=== PATIENT | male | born 1955 | race Caucasian/White ===

== ENCOUNTER → 2017-12-21 | Outpatient (CLI) | payer OTHER ==
[~2017-12-21] MED LIST: ALBU1AER9; ALL60 PO; FLVHFA110 INH; MEDLIST; MOME50SP5; OMEG10007 PO; SIMV20TA2 PO; [UNRECOGNIZED DRUG - CODE]
--- NOTE | 2017-12-21 09:08 | DIAGNOSTIC IMAGING REPORT ---
L RIBS UNILATERAL WITH PA CHEST (6 views] ) CLINICAL HISTORY: LEFT SIDE RIB PAIN COMPARISON STUDY: No previous studies for comparison. FINDINGS: The erect chest reveals no pneumothorax. There is no focal pulmonary consolidation. No left-sided rib fractures are visualized. No destructive lesions are delineated. IMPRESSION: 1. No evidence of pneumothorax. 2. No left-sided rib fractures identified. Electronically signed by: Darin Bean M.D. 12/21/2017 9:06 AM Dictated Date/Time: 12/21/2017 9:05 AM
== END | disposition home or self-care (01) ==
LOC: C.RAD1850 08:39
PROVIDERS: ATTEND Family Medicine
DX: R07.81 Pleurodynia (principal)

== ENCOUNTER 2025-01-29 17:42 | Inpatient (IN) ==
[2025-01-29 18:53] LABS: Basophils # (auto) 0.07 K/uL (0.00-0.20); Basophils % (auto) 0.7 %; Eosinophils # (auto) 0.38 K/uL (0.00-0.50); Eosinophils % (auto) 3.8 %; Hematocrit (blood only) 37.7 % (42.0-52.0); Hemoglobin 12.3 g/dl (14.0-18.0); Immature Granulocytes # (auto) 0.21 K/uL (0.01-0.20); Immature Granulocytes % (auto) 2.1 %; Lymphocytes # (auto) 1.47 K/uL (1.20-3.40); Lymphocytes % (auto) 14.9 %; Mean Corpuscular Hemoglobin 28.6 pg (25.0-34.0); Mean Corpuscular Hgb Conc 32.6 g/dL (32.0-36.0); Mean Corpuscular Volume 87.7 fL (80.0-100.0); Mean Platelet Volume 8.6 fL (9.4-12.4); Monocytes # (auto) 0.52 K/uL (0.11-0.59); Monocytes % (auto) 5.3 %; Neutrophils # (auto) 7.24 K/uL (1.40-6.50); Neutrophils % (auto) 73.2 %; Platelet Count 311 K/uL (130-400); RDW Coefficient of Variation 12.1 % (11.5-14.5); RDW Standard Deviation 39.1 fL (36.4-46.3); White Blood Count 9.89 K/ul (4.8-10.8)
--- NOTE | 2025-01-29 18:55 | XRay Report ---
INDICATION: Chest pain. TECHNIQUE: Frontal radiograph of the chest. COMPARISON: Radiograph from 07/24/2023. FINDINGS: Low inspiratory depth. Mild cardiomegaly. Pulmonary vasculature appear within normal limits. No infiltrate, pleural effusion or pneumothorax. No acute osseous abnormality evident. IMPRESSION: No acute cardiopulmonary process. Electronically signed by Lenny Swift 01-29-2025 6:55 PM
[2025-01-29] MEDS: OPTIRAY 320 125ml IV ONE (19:08)
[2025-01-29 19:15] LABS: Anion Gap 7 (3-11); BUN Creatinine Ratio 16.8 (10-20); Blood Urea Nitrogen 16 mg/dl (6-23); Calcium 9.3 mg/dl (8.6-10.3); Carbon Dioxide 29 mmol/L (21-32); Chloride 101 mmol/L (98-107); Glucose 146 mg/dl (70-99(Fasting)); Lipase 17 U/L (11-82); Sodium 137 mmol/L (136-145)
[2025-01-29 19:22] LABS: Troponin I High Sensitivity 5.2 pg/ml (0-20)
[2025-01-29 19:27] LABS: Partial Thromboplastin Time 28 Seconds (21-31); Prothrombin Time 11.2 Seconds (9.0-12.0)
[2025-01-29 19:29] LABS: D Dimer 20960 ug/L FEU (0-500)
--- NOTE | 2025-01-29 20:19 | CT Scan Report ---
CT PULMONARY ANGIOGRAM. HISTORY: Chest pain TECHNIQUE: Enhanced CT examination of the chest was performed using pulmonary embolism protocol. IV CONTRAST: 100 mL of OMNIPAQUE 300 COMPARISON: None FINDINGS: PULMONARY ARTERIES: There are pulmonary emboli in the right lower lobe segmental and subsegmental branches. LYMPH NODES: No lymphadenopathy by size criteria. CARDIOVASCULAR: Mildly enlarged cardiac size without right heart strain.. No pericardial effusion. No aortic aneurysm. There are coronary artery calcifications in keeping with coronary artery disease. MEDIASTINUM: No solid or cystic mediastinal masses. The esophagus is normally decompressed. LUNGS/PLEURA: The central tracheo-bronchial tree is patent. No mass is identified. Bibasilar atelectasis. No pleural effusion or pneumothorax. No suspicious pulmonary nodules. BONES: No suspicious osseous lesions. VISUALIZED LOWER NECK: Unremarkable. VISUALIZED UPPER ABDOMEN: Unremarkable IMPRESSION: Pulmonary emboli in the right lower lobe segmental and subsegmental branches. Mild cardiomegaly without right heart strain. Notification to clinician of alert: [facility] was notified about above findings by phone on January 29, 2025 at 8:18 PM by Wilfrido Shaw MD. Readback confirmation was obtained. Electronically signed by Wilfrido Shaw 01-29-2025 8:19 PM
[2025-01-29] MEDS: HEPARIN SOD (PORCINE) 1000 UNIT/ML IV ONE (21:18)
[2025-01-29] MEDS: HEPARIN 25000 UNIT/500 ML D5W 25,000 UNITS/500 ML BAG IV SCH (21:18)
[2025-01-29] MEDS: Heparin IV Adult Wt-Based Standard w/ INITIAL Bolus Protocol IV STA (21:21)
--- NOTE | 2025-01-29 22:07 | History & Physical Report ---
Date of Service January 29, 2025 Assessment & Plan (1) Pulmonary emboli: (2) Hypercholesterolemia: (3) BPH loc w urin obs/LUTS: (4) Asthma: (5) DVT (deep venous thrombosis): Plan 69 year old male with PMHx of HLD, BPH, asthma, and recent right ankle fracture presenting after stat venous duplex US revealed extensive RLE DVT: #DVT // #PE: -RLE venous duplex US: right external iliac, common femoral, profunda femoral vein, superficial femoral, popliteal, and visualized calf veins all appear thrombosed -CTA Chest: Pulmonary emboli in the right lower lobe segmental and subsegmental branches -PESI score falls into class III, intermediate risk -Lower suspicion for clinically significant right heart strain based on clinical appearance and fairly reassuring vitals - will check trop/BNP/lactate and evaluate further with TTE -Patient started on Heparin drip, will continue for time being. Based on history, appears to be a provoked event in the setting of immobility - anticipate discharge on DOAC for minimum 6 month duration of treatment. -Incentive spirometry Q4WA #HLD: continue simvastatin #BPH: continue alfuzosin (sub per formulary) #Asthma: continue Flovent, PRN albuterol Dispo: Admit PCU VTE ppx: Heparin FEN/GI: HH diet Full Code History of Present Illness Primary Care Provider: Anibal Oneil, 69 year old male with PMHx of HLD, BPH, asthma, and recent right ankle fracture presenting after stat venous duplex US revealed extensive RLE DVT. Patient reports diffuse RLE swelling up to the thigh that started after he fractured his right ankle 01/03. Denies associated erythema but notes ongoing tenderness of right lateral thigh. Patient has been non-weight bearing on right foot since injury. Reports BELL when using crutches, no shortness of breath at rest. Denies chest pain. Denies h/o previous DVT or PE. Denies current or previous cancer history. +FHx of colon cancer in father. Last colonoscopy 2022, f/u colo recommended 2025. Denies change in bowel habits, blood in stool, unintentional weight loss. Non-smoker. ED Course: CTA Chest: Pulmonary emboli in the right lower lobe segmental and subsegmental branches Started on Heparin drip Allergies Allergy/AdvReac Type Severity Reaction Status Date / Time Cipro Allergy Intermediate TENDINITIS Unverified 01/01/10 02:31 ciprofloxacin Allergy Intermediate TENDINITIS Verified 01/29/25 19:36 Sulfa (Sulfonamide Allergy Unknown ANAPHYLAXIS Verified 01/29/25 19:36 Antibiotics) aspirin Allergy . Verified 01/29/25 19:36 celecoxib Allergy . Verified 01/29/25 19:36 NSAIDS (Non-Steroidal Allergy Unknown Verified 01/29/25 23:34 Anti-Inflamma Quinolones Allergy TENDINITIS Verified 01/29/25 19:36 doxycycline AdvReac Severe Back Pain Unverified 01/29/25 19:36 prednisone AdvReac Unknown UNKNOWN Verified 01/29/25 19:36 loratadine AdvReac HALLUSTINAT Verified 01/29/25 19:36 IONS Home Medications Medication Instructions Recorded Confirmed Type albuterol sulfate 90 mcg/actuation 2 puff inhalation Q4H PRN 01/29/25 01/29/25 History aerosol inhaler Shortness Of Breath alfuzosin 10 mg tablet,extended 10 mg PO DAILY 01/29/25 01/29/25 History release 24 hr coenzyme Q10 100 mg capsule 100 mg PO DAILY 01/29/25 01/29/25 History fexofenadine 60 mg tablet 60 mg PO BID PRN Allergy Symptoms 01/29/25 01/29/25 History fluticasone propionate 110 2 puff inhalation BID 01/29/25 01/29/25 History mcg/actuation HFA aerosol inhaler simvastatin 40 mg tablet 40 mg PO DAILY 01/29/25 01/29/25 History Past Med/Surg History Problem List DVT (deep venous thrombosis) Pulmonary emboli (Acute) Hypercholesterolemia Impotence Prostate cancer screening BPH loc w urin obs/LUTS Medical History Pain with ejaculation Nocturia Asthma Surgical History S/P orchiopexy S/P hernia repair Family History Father Hypertension Prostate cancer Uncle Nephrolithiasis Mother Breast cancer Social History Smoking Status: Former smoker Feels Safe at Home: Yes Review of Systems Review of Systems: as per HPI Physical Exam Physical Exam: Constitutional: no acute distress HEENT: NCAT, no conjunctival injection CV: +Tachycardia, regular rhythm, extremities well-perfused, mild swelling of distal right thigh compared to left, calves symmetrical, non-tender, non- erythematous. Resp: Lungs clear to auscultation bilaterally, no increased work of breathing GI: nondistended Skin: warm, dry, no rash appreciated Neuro: alert, oriented, no focal neurologic deficit appreciated Results & Data Results & Data Vital Signs (Past 12 Hours) Vital Signs Temp Pulse Pulse Resp BP BP Pulse Ox 01/29/25 21:00 107 H 17 163/110 H 93 01/29/25 20:00 117 H 24 158/106 H 94 01/29/25 19:36 113 H 19 94 01/29/25 19:30 113 H 19 155/98 H 95 01/29/25 18:40 96 H 01/29/25 17:48 36.8 C 120 H 18 148/92 H 95 O2 Del Method 01/29/25 21:00 Room Air 01/29/25 20:00 Room Air 01/29/25 19:36 Room Air 01/29/25 19:30 Room Air 01/29/25 18:40 01/29/25 17:48 Room Air Laboratory Results Laboratory Results WBC 9.89 K/ul (4.8-10.8) 01/29/25 18:42 RBC 4.30 M/uL (4.70-6.10) L 01/29/25 18:42 Hgb 12.3 g/dl (14.0-18.0) L 01/29/25 18:42 Hct 37.7 % (42.0-52.0) L 01/29/25 18:42 MCV 87.7 fL (80.0-100.0) 01/29/25 18:42 MCH 28.6 pg (25.0-34.0) 01/29/25 18:42 MCHC 32.6 g/dL (32.0-36.0) 01/29/25 18:42 RDW Std Deviation 39.1 fL (36.4-46.3) 01/29/25 18:42 RDW Coeff of Eric 12.1 % (11.5-14.5) 01/29/25 18:42 Plt Count 311 K/uL (130-400) 01/29/25 18:42 MPV 8.6 fL (9.4-12.4) L 01/29/25 18:42 Immature Gran % (Auto) 2.1 % 01/29/25 18:42 Neut % (Auto) 73.2 % 01/29/25 18:42 Lymph % (Auto) 14.9 % 01/29/25 18:42 Runnels % (Auto) 5.3 % 01/29/25 18:42 Eos % (Auto) 3.8 % 01/29/25 18:42 Baso % (Auto) 0.7 % 01/29/25 18:42 Neut # (Auto) 7.24 K/uL (1.40-6.50) H 01/29/25 18:42 Lymph # (Auto) 1.47 K/uL (1.20-3.40) 01/29/25 18:42 Runnels # (Auto) 0.52 K/uL (0.11-0.59) 01/29/25 18:42 Eos # (Auto) 0.38 K/uL (0.00-0.50) 01/29/25 18:42 Baso # (Auto) 0.07 K/uL (0.00-0.20) 01/29/25 18:42 Immature Gran # (Auto) 0.21 K/uL (0.01-0.20) H 01/29/25 18:42 PT 11.2 Seconds (9.0-12.0) 01/29/25 18:42 INR 1.0 (0.9-1.1) 01/29/25 18:42 APTT 28 Seconds (21-31) 01/29/25 18:42 PTT Ratio 1.0 01/29/25 18:42 D-Dimer 78835 ug/L FEU (0-500) H* 01/29/25 18:42 Sodium 137 mmol/L (136-145) 01/29/25 18:42 Potassium 4.0 mmol/L (3.5-5.1) 01/29/25 18:42 Chloride 101 mmol/L (98-107) 01/29/25 18:42 Carbon Dioxide 29 mmol/L (21-32) 01/29/25 18:42 Anion Gap 7 (3-11) 01/29/25 18:42 BUN 16 mg/dl (6-23) 01/29/25 18:42 Creatinine 0.95 mg/dl (0.6-1.4) 01/29/25 18:42 Est Cr Clr Drug Dosing Not Reportable 01/29/25 18:42 eGFR 87.73 01/29/25 18:42 BUN/Creatinine Ratio 16.8 (10-20) 01/29/25 18:42 Glucose 146 mg/dl (70-99(Fasting)) H 01/29/25 18:42 Calcium 9.3 mg/dl (8.6-10.3) 01/29/25 18:42 Troponin I High Sens 5.2 pg/ml (0-20) 01/29/25 18:42 Lipase 17 U/L (11-82) 01/29/25 18:42 Impressions Chest CTA 01/29/25 18:36 CT PULMONARY ANGIOGRAM. HISTORY: Chest pain TECHNIQUE: Enhanced CT examination of the chest was performed using pulmonary embolism protocol. IV CONTRAST: 100 mL of OMNIPAQUE 300 COMPARISON: None FINDINGS: PULMONARY ARTERIES: There are pulmonary emboli in the right lower lobe segmental and subsegmental branches. LYMPH NODES: No lymphadenopathy by size criteria. CARDIOVASCULAR: Mildly enlarged cardiac size without right heart strain.. No pericardial effusion. No aortic aneurysm. There are coronary artery calcifications in keeping with coronary artery disease. MEDIASTINUM: No solid or cystic mediastinal masses. The esophagus is normally decompressed. LUNGS/PLEURA: The central tracheo-bronchial tree is patent. No mass is identified. Bibasilar atelectasis. No pleural effusion or pneumothorax. No suspicious pulmonary nodules. BONES: No suspicious osseous lesions. VISUALIZED LOWER NECK: Unremarkable. VISUALIZED UPPER ABDOMEN: Unremarkable IMPRESSION: Pulmonary emboli in the right lower lobe segmental and subsegmental branches. Mild cardiomegaly without right heart strain. Notification to clinician of alert: [facility] was notified about above findings by phone on January 29, 2025 at 8:18 PM by Wilfrido Shaw MD. Readback confirmation was obtained. Electronically signed by Wilfrido Shaw 01-29-2025 8:19 PM Chest X-Ray 01/29/25 18:36 INDICATION: Chest pain. TECHNIQUE: Frontal radiograph of the chest. COMPARISON: Radiograph from 07/24/2023. FINDINGS: Low inspiratory depth. Mild cardiomegaly. Pulmonary vasculature appear within normal limits. No infiltrate, pleural effusion or pneumothorax. No acute osseous abnormality evident. IMPRESSION: No acute cardiopulmonary process. Electronically signed by Lenny Swift 01-29-2025 6:55 PM ECG Additional Comments: EKG per my interpretation with sinus tach with fusion complexes, rate of 107 bpm, no acute ischemic changes Supervising Physician Co-Signing Physician Notes Patient seen examined, chart reviewed, case discussed with Dr. Oliveros and I agree with the assessment and plan as documented above. In brief, patient is a 69-year-old male with history of hyperlipidemia, BPH and asthma, recent ankle fracture with boot in place presenting with extensive right lower extremity DVT and PE in the right lower lobe segmental and subsegmental branches. Mild cardiomegaly without right heart strain. Patient is afebrile, mildly tachycardic with heart rate of 106 bpm. Per review of old vital signs he tends to run heart rate on the higher end of normal at baseline On physical exam he is resting comfortably, no acute distress Skinwarm, dry, intact, no rashes or lesions HEENTneck supple, moist mucous membranes Heart+ S1, S2, regular, tachycardic LungsCTA anteriorly Abdomensoft, nontender, nondistended Extremities right lower extremity with boot in place Labs and images reviewed. Significant for markedly elevated D-dimer = 20,960 Assessment/plan 69-year-old male with history of hyperlipidemia, BPH, asthma presenting with extensive right lower extremity DVT and PE. Patient with mild tachycardia at present. Saturation is adequate on room air. Admit to PCU Continue heparin drip Transition to DOAC in a.m. for at least 6 months of treatment for provoked DVT/PE Remainder as above Resident Activity Tracking Resident Involvement: Resident Care Provided Care Provided: Adult Hospital Medicine (1) Pulmonary emboli Acute cor pulmonale presence: without acute cor pulmonale Chronicity: acute Pulmonary embolism type: unspecified Qualified Code(s): I26.99 - Other pulmonary embolism without acute cor pulmonale
--- NOTE | 2025-01-29 22:10 | Emergency Department Note ---
History of Present Illness General Chief Complaint: Abnormal Labs/Diagnostic Testing Stated Complaint: ABN TEST RESULTS Time Seen by Provider: 01/29/25 17:56 History of Present Illness Provider Complaint: + abnormal lab Returns today for: + called because of abnormal lab/test Description of abnormal result: Right lower extremity DVT Associated symptoms: + chest pain and + shortness of breath Home Medications Medication Instructions Recorded Confirmed Type albuterol sulfate 90 mcg/actuation 2 puff inhalation Q4H PRN 01/29/25 01/29/25 History aerosol inhaler Shortness Of Breath alfuzosin 10 mg tablet,extended 10 mg PO DAILY 01/29/25 01/29/25 History release 24 hr coenzyme Q10 100 mg capsule 100 mg PO DAILY 01/29/25 01/29/25 History fexofenadine 60 mg tablet 60 mg PO BID PRN Allergy Symptoms 01/29/25 01/29/25 History fluticasone propionate 110 2 puff inhalation BID 01/29/25 01/29/25 History mcg/actuation HFA aerosol inhaler simvastatin 40 mg tablet 40 mg PO DAILY 01/29/25 01/29/25 History Allergies Allergy/AdvReac Type Severity Reaction Status Date / Time Cipro Allergy Intermediate TENDINITIS Unverified 01/01/10 02:31 ciprofloxacin Allergy Intermediate TENDINITIS Verified 01/29/25 19:36 Sulfa (Sulfonamide Allergy Unknown ANAPHYLAXIS Verified 01/29/25 19:36 Antibiotics) aspirin Allergy . Verified 01/29/25 19:36 celecoxib Allergy . Verified 01/29/25 19:36 Quinolones Allergy TENDINITIS Verified 01/29/25 19:36 doxycycline AdvReac Severe Back Pain Unverified 01/29/25 19:36 prednisone AdvReac Unknown UNKNOWN Verified 01/29/25 19:36 loratadine AdvReac HALLUSTINAT Verified 01/29/25 19:36 IONS NONSTEROIDAL Allergy . Uncoded 01/29/25 19:36 Past Med/Surg History Problem List (Updated 01/29/25 @ 22:15 by Abdullahi Reich MD) Pulmonary emboli (Acute) Hypercholesterolemia Impotence Prostate cancer screening BPH loc w urin obs/LUTS Medical History Pain with ejaculation Nocturia Asthma Surgical History S/P orchiopexy S/P hernia repair Family History Father Hypertension Prostate cancer Uncle Nephrolithiasis Mother Breast cancer Social History Smoking Status: Former smoker Feels Safe at Home: Yes Physical Exam 2 Vital Signs: Vital Signs - 24 hr 01/29/25 17:48 01/29/25 18:40 01/29/25 19:30 Temperature 36.8 C Temperature Source Temporal Artery Sc an Pulse Rate 120 H 96 H Pulse Rate [Apical ] 113 H Pulse Rhythm Pulse Rhythm [Apic al] Regular Pulse Strength [Ap ical] Normal Respiratory Rate 18 19 Respiratory Effort / Characteristics Non-Labored Non-Labored Respiratory Depth Normal Normal Respiratory Patter n Regular Regular Blood Pressure 148/92 H Blood Pressure [Ri ght Arm] 155/98 H Blood Pressure Kayy n 110 Blood Pressure Kayy n [Right Arm] 117 Blood Pressure Pos ition [Right Arm] Lying Pulse Oximetry 95 95 Oxygen Delivery Me thod Room Air Room Air Sepsis Recent Feve r Within 48 Hours No Sepsis New/Unexpla ined Change in Men natalie Status N/A Sepsis Action Take n by Nursing No Action Required 01/29/25 19:36 01/29/25 20:00 01/29/25 21:00 Temperature Temperature Source Pulse Rate 113 H Pulse Rate [Apical ] 117 H 107 H Pulse Rhythm Regular Pulse Rhythm [Apic al] Regular Regular Pulse Strength [Ap ical] Respiratory Rate 19 24 17 Respiratory Effort / Characteristics Non-Labored Sponta neous Non-Labored Sponta neous Respiratory Depth Normal Normal Respiratory Patter n Regular Regular Blood Pressure Blood Pressure [Ri ght Arm] 158/106 H 163/110 H Blood Pressure Kayy n Blood Pressure Kayy n [Right Arm] 123 127 Blood Pressure Pos ition [Right Arm] Pulse Oximetry 94 94 93 Oxygen Delivery Me thod Room Air Room Air Room Air Sepsis Recent Feve r Within 48 Hours Sepsis New/Unexpla ined Change in Men natalie Status Sepsis Action Take n by Nursing Physical Exam: Physical Exam GENERAL: oriented to person, place, and time. appears well-developed and well- nourished. HENT: Exam performed. - Head: Normocephalic and atraumatic. EYES: Conjunctivae and EOM are normal. Right eye exhibits no discharge. Left eye exhibits no discharge. No scleral icterus. NECK: Normal range of motion. Neck supple. No JVD present. CV: Tachycardic rate, regular rhythm, normal heart sounds and intact distal pulses. Palpable radial pulses bue. PULM/CHEST: Effort normal and breath sounds normal. No respiratory distress. No stridor. no wheezes. no rales. MUSC: Right lower extremity in walking boot. NEURO: Motor and sensation grossly intact. SKIN: Skin is warm and dry. He is not diaphoretic. PSYCH: normal mood and affect. Behavior is normal. Judgment and thought content normal. Course Course 1755: The patient was evaluated in room B3. A complete history and physical exam was performed Cardiac monitoring: An order was placed for continuous cardiac monitoring. The monitor shows a rate of 110 with sinus tachycardia rhythm interpreted by me External medical records reviewed. Ultrasound shows an extensive DVT from his right external iliac, femoral profundofemoral superficial femoral popliteal and visualized calf veins. Given the patient's large DVT persistent tachycardia and reported dyspnea will obtain CTA of the chest rule out PE. 2030: Vital signs stable. CTA does show PE. Patient be started on heparin bolus and drip and admitted to the hospitalist team. Administered Medications Heparin Sodium/Dextrose (Heparin 16145 Unit/500 Ml D5w) 25,000 units in 500 mls @ 25 mls/hr IV .Q20H [facility]; Protocol Stop: 02/28/25 20:44 Last Admin: 01/29/25 21:18 Dose: 1,250 units/hr, 25 mls/hr Documented By: TEX Co-signed By: EL Discontinued Medications Heparin Sodium (Porcine) (Heparin Sod (Porcine) 1000 Unit/Ml) 1 units IV NOW ONE Stop: 01/29/25 20:34 Last Admin: 01/29/25 21:18 Dose: 5,000 units Documented By: TEX Co-signed By: EL Heparin Sodium/Dextrose (Heparin Iv Adult Wt-Based Standard W/ Initial Bolus Protocol) 1 each IV NOW STA; Protocol Stop: 01/29/25 20:19 Last Admin: 01/29/25 21:21 Dose: Not Given Documented By: TEX Ioversol (Optiray 320 125ml) 115 ml IV ONCE ONE Stop: 01/29/25 19:08 Last Admin: 01/29/25 19:08 Dose: 115 ml Documented By: CHIRAG Medical Decision Making Laboratory Data Attestation: I reviewed the patient's lab results. 01/29/25 18:42 01/29/25 18:42 Lab Results 01/29/25 Range/Units 18:42 WBC 9.89 (4.8-10.8) K/ul RBC 4.30 L (4.70-6.10) M/uL Hgb 12.3 L (14.0-18.0) g/dl Hct 37.7 L (42.0-52.0) % MCV 87.7 (80.0-100.0) fL MCH 28.6 (25.0-34.0) pg MCHC 32.6 (32.0-36.0) g/dL RDW Std Deviation 39.1 (36.4-46.3) fL RDW Coeff of Eric 12.1 (11.5-14.5) % Plt Count 311 (130-400) K/uL MPV 8.6 L (9.4-12.4) fL Immature Gran % (Auto) 2.1 % Neut % (Auto) 73.2 % Lymph % (Auto) 14.9 % Dane % (Auto) 5.3 % Eos % (Auto) 3.8 % Baso % (Auto) 0.7 % Neut # (Auto) 7.24 H (1.40-6.50) K/uL Lymph # (Auto) 1.47 (1.20-3.40) K/uL Dane # (Auto) 0.52 (0.11-0.59) K/uL Eos # (Auto) 0.38 (0.00-0.50) K/uL Baso # (Auto) 0.07 (0.00-0.20) K/uL Immature Gran # (Auto) 0.21 H (0.01-0.20) K/uL PT 11.2 (9.0-12.0) Seconds INR 1.0 (0.9-1.1) APTT 28 (21-31) Seconds PTT Ratio 1.0 D-Dimer 15267 H* (0-500) ug/L FEU Sodium 137 (136-145) mmol/L Potassium 4.0 (3.5-5.1) mmol/L Chloride 101 (98-107) mmol/L Carbon Dioxide 29 (21-32) mmol/L Anion Gap 7 (3-11) BUN 16 (6-23) mg/dl Creatinine 0.95 (0.6-1.4) mg/dl Est Cr Clr Drug Dosing Not Reportable eGFR 87.73 BUN/Creatinine Ratio 16.8 (10-20) Glucose 146 H (70-99(Fasting)) mg/dl Calcium 9.3 (8.6-10.3) mg/dl Troponin I High Sens 5.2 (0-20) pg/ml Lipase 17 (11-82) U/L Imaging Data Attestation: I personally reviewed and interpreted this imaging study as follows: My Impression: Chest x-ray negative. Airway clear. No pneumothorax. No consolidation. No cardiomegaly or cephalization.. No free air under the diaphragm. No fractures of the skeletal structures. Radiologist's Impression: Chest CTA 01/29/25 18:36 CT PULMONARY ANGIOGRAM. HISTORY: Chest pain TECHNIQUE: Enhanced CT examination of the chest was performed using pulmonary embolism protocol. IV CONTRAST: 100 mL of OMNIPAQUE 300 COMPARISON: None FINDINGS: PULMONARY ARTERIES: There are pulmonary emboli in the right lower lobe segmental and subsegmental branches. LYMPH NODES: No lymphadenopathy by size criteria. CARDIOVASCULAR: Mildly enlarged cardiac size without right heart strain.. No pericardial effusion. No aortic aneurysm. There are coronary artery calcifications in keeping with coronary artery disease. MEDIASTINUM: No solid or cystic mediastinal masses. The esophagus is normally decompressed. LUNGS/PLEURA: The central tracheo-bronchial tree is patent. No mass is identified. Bibasilar atelectasis. No pleural effusion or pneumothorax. No suspicious pulmonary nodules. BONES: No suspicious osseous lesions. VISUALIZED LOWER NECK: Unremarkable. VISUALIZED UPPER ABDOMEN: Unremarkable IMPRESSION: Pulmonary emboli in the right lower lobe segmental and subsegmental branches. Mild cardiomegaly without right heart strain. Notification to clinician of alert: [facility] was notified about above findings by phone on January 29, 2025 at 8:18 PM by Wilfrido Shaw MD. Readback confirmation was obtained. Electronically signed by Wilfrido Shaw 01-29-2025 8:19 PM Chest X-Ray 01/29/25 18:36 INDICATION: Chest pain. TECHNIQUE: Frontal radiograph of the chest. COMPARISON: Radiograph from 07/24/2023. FINDINGS: Low inspiratory depth. Mild cardiomegaly. Pulmonary vasculature appear within normal limits. No infiltrate, pleural effusion or pneumothorax. No acute osseous abnormality evident. IMPRESSION: No acute cardiopulmonary process. Electronically signed by Lenny Swift 01-29-2025 6:55 PM ECG Data Attestation: I personally reviewed and interpreted this ECG as follows: Rate (beats per minute): 107 Rhythm: sinus tachycardia Findings: no ST depression, no ST elevation or no prolonged QT MDM Narrative 1756: The patient was evaluated in room B3. A complete history and physical exam was performed Cardiac monitoring: An order was placed for continuous cardiac monitoring. The monitor shows a rate of 110 with sinus tachycardia rhythm interpreted by me External medical records reviewed. Ultrasound shows an extensive DVT from his right external iliac, femoral profundofemoral superficial femoral popliteal and visualized calf veins. Given the patient's large DVT persistent tachycardia and reported dyspnea will obtain CTA of the chest rule out PE. 2030: Vital signs stable. CTA does show PE. Patient be started on heparin bolus and drip and admitted to the hospitalist team. Impression & Plan Pulmonary emboli Critical Care Time Critical Care Time: Yes Total Critical Care Time: 67 I have personally spent greater than 67 minutes of critical care time in the direct management of this patient. This includes bedside care, interpretation of diagnostic studies, and testing, discussion with consultants, patient, and family members, and other required patient management activities. This 67 minutes is in excess of all separately billable procedures. Discharge Plan Visit Data Chief Complaint: Abnormal Labs/Diagnostic Testing Stated Complaint: ABN TEST RESULTS ED Provider: Abdullahi Reich Discharge Problem: Pulmonary emboli Patient Disposition: Admitted As Inpatient Condition: Critical Forms Stand Alone Forms: My [facility] Prescriptions Prescriptions: No Action fexofenadine 60 mg tablet 60 mg PO BID PRN (Reason: Allergy Symptoms) simvastatin 40 mg tablet 40 mg PO DAILY albuterol sulfate 90 mcg/actuation HFA aerosol inhaler 2 puff INHALATION Q4H PRN (Reason: Shortness Of Breath) fluticasone propionate 110 mcg/actuation HFA aerosol inhaler 2 puff INHALATION BID coenzyme Q10 100 mg Capsule 100 mg PO DAILY alfuzosin 10 mg tablet extended release 24 hr 10 mg PO DAILY Rx Instructions: AT LUNCH TIME Referrals Referrals: Anibal Oneil DO [Primary Care Provider] - Discharge Problem: Pulmonary emboli Qualifiers: Pulmonary embolism type: unspecified Chronicity: acute Acute cor pulmonale presence: without acute cor pulmonale Qualified Code(s): I26.99 - Other pulmonary embolism without acute cor pulmonale
[2025-01-29] MEDS ORDERED: ACETAMINOPHEN 325 MG TAB PO PRN (23:25)
[2025-01-29] MEDS ORDERED: MELATONIN 3 MG TAB PO PRN (23:25)
[2025-01-29] MEDS ORDERED: ALUMINUM/MAGNESIUM SUSP 30 ML UDC PO PRN (23:25)
[2025-01-29] MEDS ORDERED: POLYETHYLENE (MIRALAX) 17 GM PACK PO PRN (23:25)
[2025-01-29] MEDS ORDERED: FEXOFENADINE 60 MG TAB PO PRN (23:25)
--- NOTE | 2025-01-29 23:39 | Billing Data ---
Date of Service January 29, 2025 Coding Level of Care Code 53774 INT INP/OBS CARE
[2025-01-30 03:50] VITALS: RESP 18
[2025-01-30 03:58] LABS: Hematocrit (blood only) 32.2 % (42.0-52.0); Hemoglobin 10.8 g/dl (14.0-18.0); Mean Corpuscular Hemoglobin 28.8 pg (25.0-34.0); Mean Corpuscular Hgb Conc 33.5 g/dL (32.0-36.0); Mean Corpuscular Volume 85.9 fL (80.0-100.0); Mean Platelet Volume 8.6 fL (9.4-12.4); Platelet Count 280 K/uL (130-400); RDW Coefficient of Variation 12.1 % (11.5-14.5); RDW Standard Deviation 37.9 fL (36.4-46.3); Red Blood Count 3.75 M/uL (4.70-6.10); White Blood Count 9.41 K/ul (4.8-10.8)
[2025-01-30 04:14] LABS: BUN Creatinine Ratio 15.8 (10-20); Calcium 8.8 mg/dl (8.6-10.3); Creatinine Clr Calc Pharmacy 73.7 ml/min; Potassium 4.2 mmol/L (3.5-5.1)
[2025-01-30 04:23] LABS: ANTI-Xa, UFH(UnfractionatedHep 0.46 IU/ml (0.3-0.7)
[2025-01-30] MEDS: ALBUTEROL HFA 8 GM INHALER INH PRN (04:27)
[2025-01-30] MEDS: SIMVASTATIN 40 MG TAB PO SCH (08:46)
[2025-01-30] MEDS: FLUTICASONE FUROATE 200MCG 14 PUFFS/INHALER INH SCH (08:51)
[2025-01-30] MEDS: TAMSULOSIN HCL 0.4 MG CAP PO SCH ×2 (08:52→11:32)
[2025-01-30] MEDS ORDERED: Nursing to Pharmacy Communication SCH (09:00)
[2025-01-30] MEDS ORDERED: NON-FORMULARY MEDICATION (Coenzyme Q10 100 mg Capsule) PO SCH (09:00)
--- NOTE | 2025-01-30 11:08 | Hospitalist Progress Note ---
Date of Service January 30, 2025 Assessment & Plan (1) Pulmonary emboli: (2) DVT (deep venous thrombosis): (3) Hypercholesterolemia: (4) BPH loc w urin obs/LUTS: (5) Asthma: Plan 69 year old male with PMHx of HLD, BPH, asthma, and recent right ankle fracture presenting after stat venous duplex US revealed extensive RLE DVT. CTA revealed PE in the right lower lung. He was strated on a Heparin drip. Given clear cause, low risk, low suspicision for RV strain, and wnl CrCl, patient to be transitioned to oral eliquis in anticipation of d/c (1) DVT & (2) PE: -RLE venous duplex US showed large clots in right external iliac, common femoral, profunda femoral vein, superficial femoral, popliteal, and visualized calf veins all appear thrombosed -CTA Chest: Pulmonary emboli in the right lower lobe segmental and subsegmental branches -sPESI score of 0 (low risk) -Lower suspicion for clinically significant right heart strain based on clinical appearance and fairly reassuring vitals - BNP/Trops/Lactate wnl, Echo pending -Patient started on Heparin drip, transition to Eliquis; Based on history of ankle break and immobility, the DVT and subsequent PE appears to be a provoked event in the setting of immobility - anticipate discharge on DOAC for 3-6 month duration of treatment. -Incentive spirometry Q4WA -F/U with Coag studies (3) HLD: -Stable -Continue simvastatin (4) BPH: -Stable -Continue alfuzosin (sub per formulary) (5) Asthma: -Continue Flovent, PRN albuterol VTE ppx: Heparin, transition to DOAC (Eliquis) FEN/GI: HH diet Full Code Admission and Anticipated Discharge Date Admission Date: January 29, 2025 Subjective I saw the patient at the bedside this morning. He feels well this AM. Nursing staff reported no events overnight. Patient was sat comfortable in the hospital bed eating breakfast. He notes that he has been eating and drinking without difficulty. He also notes regular BM and urination during his admission. He notes no issues with the initiation of Heparin. He reports a bit of pain and tightness in the right extremity affected by the DVT, but does not endorse SOB, chest pain, palpitations, dizziness, or palpitations this AM. Review of Systems Review of Systems: All other ROS is negative except for as reported in the HPI Physical Exam Physical Exam: Constitutional: Alert and Oriented Male appearing stated age, in no acute distress. Sitting comfortably in the hospital bed. HEENT: NCAT, no conjunctival injection CV: Tachycardic rate, regular rhythm. Extremities well-perfused, with normal capillary refill Extremities: Swelling of distal right thigh compared to left, calf and ankle on left side edematous with 1+ pitting edema in left lower extremity. Erythema over the dorsum of the l foot. R extremity without erythema or edema. Warm and well perfused throughout both extremities. Peripheral pulses intact. Resp: Lungs clear to auscultation bilaterally, no increased work of breathing GI: Nontender and nondistended Skin: warm, dry, no rash appreciated Neuro: alert, oriented, no focal neurologic deficit appreciated Results & Data Results & Data Vital Signs (Past 12 Hours) Vital Signs Temp Pulse Pulse Pulse Resp BP BP 01/30/25 04:28 98 H 18 01/30/25 03:49 36.9 C 95 H 18 143/95 H 01/30/25 01:00 105 H 01/30/25 00:16 146/100 H 01/29/25 23:37 36.7 C 99 H 20 178/136 H 01/29/25 23:00 106 H 19 143/103 H 01/29/25 22:59 105 H 19 143/103 H 01/29/25 22:30 109 H 19 157/105 H 01/29/25 21:00 107 H 17 163/110 H 01/29/25 20:00 117 H 24 158/106 H 01/29/25 19:36 113 H 19 01/29/25 19:30 113 H 19 155/98 H Pulse Ox O2 Del Method 01/30/25 04:28 93 Room Air 01/30/25 03:49 94 Room Air 01/30/25 01:00 01/30/25 00:16 01/29/25 23:37 95 Room Air 01/29/25 23:00 94 Room Air 01/29/25 22:59 94 Room Air 01/29/25 22:30 95 Room Air 01/29/25 21:00 93 Room Air 01/29/25 20:00 94 Room Air 01/29/25 19:36 94 Room Air 01/29/25 19:30 95 Room Air (1) Pulmonary emboli Acute cor pulmonale presence: without acute cor pulmonale Chronicity: acute Pulmonary embolism type: unspecified Qualified Code(s): I26.99 - Other pulmonary embolism without acute cor pulmonale
[2025-01-30] MEDS: APIXABAN 5 MG TABLET PO SCH (11:32)
[2025-01-30 11:46] VITALS: BP 129/83; TEMP 97.7; O2SAT 95
--- NOTE | 2025-01-30 11:54 | XCELERA ---
[id number]
--- NOTE | 2025-01-30 12:59 | Discharge Summary ---
Date of Service January 30, 2025 Admission HPI Per Admitting Provider 69 year old male with PMHx of HLD, BPH, asthma, and recent right ankle fracture presenting after stat venous duplex US revealed extensive RLE DVT. Patient reports diffuse RLE swelling up to the thigh that started after he fractured his right ankle 01/03. Denies associated erythema but notes ongoing tenderness of right lateral thigh. Patient has been non-weight bearing on right foot since injury. Reports BELL when using crutches, no shortness of breath at rest. Denies chest pain. Denies h/o previous DVT or PE. Denies current or previous cancer history. +FHx of colon cancer in father. Last colonoscopy 2022, f/u colo r ecommended 2025. Denies change in bowel habits, blood in stool, unintentional weight loss. Non-smoker. ED Course: CTA Chest: Pulmonary emboli in the right lower lobe segmental and subsegmental branches Started on Heparin drip Admission Exam Per Admitting Provider Physical Exam: Constitutional: no acute distress HEENT: NCAT, no conjunctival injection CV: +Tachycardia, regular rhythm, extremities well-perfused, mild swelling of distal right thigh compared to left, calves symmetrical, non-tender, non- erythematous. Resp: Lungs clear to auscultation bilaterally, no increased work of breathing GI: nondistended Skin: warm, dry, no rash appreciated Neuro: alert, oriented, no focal neurologic deficit appreciated Principal Diagnosis Pulmonary Embolism DVT Discharge Exam Constitutional: Alert and Oriented Male appearing stated age, in no acute distress. Sitting comfortably in the hospital bed. HEENT: NCAT, no conjunctival injection CV: Tachycardic rate, regular rhythm. Extremities well-perfused, with normal capillary refill Extremities: Swelling of distal right thigh compared to left, calf and ankle on left side edematous with 1+ pitting edema in left lower extremity. Erythema over the dorsum of the l foot. R extremity without erythema or edema. Warm and well perfused throughout both extremities. Peripheral pulses intact. Resp: Lungs clear to auscultation bilaterally, no increased work of breathing GI: Nontender and nondistended Skin: warm, dry, no rash appreciated Neuro: alert, oriented, no focal neurologic deficit appreciated Discharge Data Allergies Allergy/AdvReac Type Severity Reaction Status Date / Time Cipro Allergy Intermediate TENDINITIS Unverified 04/16/10 02:31 ciprofloxacin Allergy Intermediate TENDINITIS Verified 01/29/25 19:36 Sulfa (Sulfonamide Allergy Unknown ANAPHYLAXIS Verified 01/29/25 19:36 Antibiotics) aspirin Allergy . Verified 01/29/25 19:36 celecoxib Allergy . Verified 01/29/25 19:36 NSAIDS (Non-Steroidal Allergy Unknown Verified 01/29/25 23:34 Anti-Inflamma Quinolones Allergy TENDINITIS Verified 01/29/25 19:36 doxycycline AdvReac Severe Back Pain Unverified 01/29/25 19:36 prednisone AdvReac Unknown UNKNOWN Verified 01/29/25 19:36 loratadine AdvReac HALLUSTINAT Verified 01/29/25 19:36 IONS Consultations 01/29/25 20:33 ED Decision to Admit Stat Ordered Studies 01/29/25 18:36 CT angio chest PE protocol Stat Echocardiogram Hospital Course (1) Pulmonary emboli: (2) Hypercholesterolemia: (3) BPH loc w urin obs/LUTS: (4) Asthma: (5) DVT (deep venous thrombosis): Plan The patient is a 69-year-old male with a history of hyperlipidemia, BPH, asthma, and a recent right ankle fracture (01/03), who presented with diffuse right lower extremity swelling and tenderness. The patient denied chest pain and only endorsed mild dyspnea on exertion while using crutches. He remained hemodynamically stable with no signs of right heart strain. BNP, troponin, and lactate levels were within normal limits. 1) Provoked DVT/Subsequent PE - A stat venous duplex ultrasound revealed extensive acute deep vein thrombosis (DVT) involving the right external iliac, common femoral, profunda femoral, superficial femoral, popliteal, and calf veins. - CTA chest was obtained and revealed pulmonary emboli in the segmental and subsegmental branches of the right lower lobe. - The patient was initiated on a heparin drip upon diagnosis. - With a sPESI score of 0 and reassuring vitals, a provoked PE in the setting of immobility and recent fracture was favored. - Factor Xa was within therapeutic range (0.46) morning after heparin initiation - Echo showed EF of 50-55% with no evidence of increased PA pressure or other signs of right heart strain - Given his stable renal function and low-risk profile, he was transitioned to apixaban (Eliquis) with plans for a 3 month course of anticoagulation. - Eliquis, 10 mg, PO, BID for 7 days then transition to Eliquis, 5 mg, PO, BID for a total time of 3 months Total Time Total Time Spent Total Time Spent (In Minutes): As per attending provider Discharge Plan Discharge Items Patient Disposition: Home - Self-Care Reason For Visit: PE Discharge Diagnosis: pulmonary embolism, DVT Condition on Discharge: Critical Activity: Resume your previous activity Non-emergency contact: Primary Care Provider Call non-emergency contact if: you have any medication questions and your symp toms worsen Follow-up/Referrals: Anibal Oneil, [Primary Care Provider] - Diet: Regular Pending Studies at Discharge: No Stand-Alone Forms: My [facility], Smoking Cessation Medications and DC Order Prescriptions: New Eliquis 5 mg tablet 5 mg PO BID Qty: 75 0RF Rx Instructions: 10 mg, PO, BID for first 6 1/2 days (first 10 mg dose given in hospital) 5 mg, PO, BID thereafter for 3 months Continued fexofenadine 60 mg tablet 60 mg PO BID PRN (Reason: Allergy Symptoms) simvastatin 40 mg tablet 40 mg PO DAILY albuterol sulfate 90 mcg/actuation HFA aerosol inhaler 2 puff INHALATION Q4H PRN (Reason: Shortness Of Breath) fluticasone propionate 110 mcg/actuation HFA aerosol inhaler 2 puff INHALATION BID coenzyme Q10 100 mg Capsule 100 mg PO DAILY alfuzosin 10 mg tablet extended release 24 hr 10 mg PO DAILY Rx Instructions: AT LUNCH TIME Admission Data Admit Date/Time: 01/29/25 21:43 Attending Provider: Barbara Reynaga Admit Provider: Abdullahi Oliveros Primary Care Provider: Anibal Oneil Other Providers: Ami Connolly Supervising Physician Co-Signing Physician Notes I personally examined the patient and verified alvarez points of history and exam, discussed case, and agree with decision making and plan documented by Dr. Carcamo and Kam Villalobos [facility]. Patient is a 69-year-old man on admission for provoked pulmonary embolism and right leg DVT after fracture of his right fibula 01/03/25. Patient was placed on heparin drip and then transitioned to apixaban. Patient appears comfortable, lungs clear b/l to auscultation, regular rate and rhythm, distal right lower extremity in brace, no acute distress. Echocardiogram with LVEF 50 to 55%, grade 1 diastolic dysfunction, otherwise unremarkable. Patient will followup with PCP. Total attending time 36 minutes.
[2025-01-30 15:11] LABS: iSTAT Hemoglobin 12.6 g/dl (14.0-18.0); iSTAT Ionized Calcium 1.16 mmol/l (1.12-1.32); iSTAT Potassium 3.9 mmol/L (3.3-5.0)
--- NOTE | 2025-01-30 17:15 | Electrocardiogram Report ---
Test Reason : Blood Pressure : */* mmHG Vent. Rate : 107 BPM Atrial Rate : 107 BPM P-R Int : 178 ms QRS Dur : 80 ms QT Int : 338 ms P-R-T Axes : 59 -11 12 degrees QTcB Int : 451 ms Sinus tachycardia with Premature ventricular and fusion complexes Otherwise normal ECG Confirmed by Shahab Estrella ([id number]) on 01/30/2025 5:14:57 PM Referred By: REFERRED SELF Confirmed By: Shahab Estrella
[2025-01-30 18:26] VITALS: PULSE 95
== END 2025-01-30 19:43 | disposition home or self-care (01) | DRG 176 ==
LOC: ED 17:42 → 2E 21:43 → SUATTDRO 21:43 → 2E 22:59